=== PATIENT | female | born 1980 | race Caucasian/White ===

== ENCOUNTER 2018-05-04 00:26 | Emergency (ER) | END 2018-05-04 02:56 | disposition home or self-care (01) ==

== ENCOUNTER 2019-01-13 17:04 | Emergency (ER) | payer MEDICARE, MEDICAID ==
[~2019-01-13] VITALS: Ht 157.5 cm; Wt 112.0 kg
[~2019-01-13 17:04] MED LIST: ALBU18HF INHALATION; AMOX1TAB10 PO; CHLO118L3 TOP; HYDR-4011 PO; IBUP800T48 PO; PRED20TA PO
[2019-01-13 17:06] VITALS: BP 139/78; PULSE 90; RESP 18; Ht 157.5 cm; Wt 112.0 kg
== END 2019-01-13 18:09 | disposition home or self-care (01) ==
LOC: FTE 17:04
DX: K08.89 Other specified disorders of teeth and supporting structures (principal); J45.909 Unspecified asthma, uncomplicated; F17.210 Nicotine dependence, cigarettes, uncomplicated
CPT/HCPCS: 99283

== ENCOUNTER 2019-01-14 02:46 | Emergency (ER) | payer MEDICARE, MEDICAID ==
[~2019-01-14] VITALS: Ht 165.1 cm; Wt 103.5 kg
[2019-01-14 02:58] VITALS: BP 127/76; PULSE 83; RESP 17; Ht 165.1 cm; Wt 103.5 kg
[2019-01-14] MEDS ORDERED: HYDROCODONE/APAP (5/325) TAB PO ONE (04:00)
[2019-01-14] MEDS ORDERED: CEFTRIAXONE 1 GM INJ IM ONE (04:00)
== END 2019-01-14 04:20 | disposition home or self-care (01) ==
LOC: FTE 02:46
DX: K04.7 Periapical abscess without sinus (principal); J45.909 Unspecified asthma, uncomplicated; F17.210 Nicotine dependence, cigarettes, uncomplicated
CPT/HCPCS: 96372; 99284; J0696